=== PATIENT | female | born 1950 | race Caucasian/White ===

== ENCOUNTER 2019-10-11 12:58 | Inpatient (IN) | payer MEDICARE, BC ==
[2019-10-11 14:00] LABS: #Eosinphils 0.1 thou/uL (0.0-0.7); #Lymphocytes 1.7 thou/uL (1.20-3.40); #Monocytes 0.8 thou/uL (0.11-0.59); #Neutrophils 8.1 thou/uL (1.40-6.50); %Basophils 0.2 % (0.0-1.0); %Eosinophils 0.6 % (0.0-10.0); %Monocytes 7.8 % (0.0-10.0); %Neutrophils 75.3 % (42.0-75.0); Hemoglobin 12.5 g/dL (12.0-16.0); Mean Corpuscular HGB CONC 33.2 g/dL (32.0-36.0); Mean Corpuscular Hemoglobin 31.3 pg (27.0-31.0); Mean Corpuscular Volume 94.3 fL (78.0-98.0); Mean Platelet Volume 7.2 fL (7.4-10.4); Platelet Count 346 thou/uL (130-400); RBC Distribution Width 12.7 % (11.5-14.5); Red Blood Cell (RBC) Count 3.99 mill/uL (4.20-5.40); White Blood Cell (WBC) Count 10.8 thou/uL (4.8-10.8)
[2019-10-11 14:10] LABS: Bacteria/HPF None Seen HPF (None Seen); Bilirubin Negative (Negative); Blood, Urine Negative (Negative); Clarity Turbid (Clear); Glucose, Urine (Dipstick) Normal (Negative); Leukocyte 75 Leu/uL (Negative); Nitrite Negative (Negative); Protein, Urine (Dipstick) 20 mg/dL (Neg-Trace); RBC/HPF 0-3 HPF (0-3); Urobilinogen Normal mg/dL (Less than 2)
[2019-10-11] MEDS ORDERED: Promethazine HCl 25 MG/ML VIAL ONE (14:22)
[2019-10-11 14:23] LABS: ALT (SGPT) 12 U/L (8-55); AST (SGOT) 17 U/L (5-34); Albumin 4.2 g/dL (3.4-4.8); Alkaline Phosphatase 108 U/L (40-110); Anion Gap 15 mmol/L (10-20); BUN (Urea Nitrogen) 29 mg/dL (9.8-20.1); Bilirubin, Total 0.6 mg/dL (0.2-1.2); Calc. Creatinine Clearance 0 mL/min (70-130); Calcium 9.4 mg/dL (7.8-10.44); Carbon Dioxide 22 mmol/L (23-31); Chloride 89 mmol/L (98-107); Estimated GFR-MDRD 22; Globulin 2.8 g/dL (2.4-3.5); Glucose 116 mg/dL (80-115); Lipase 18 U/L (8-78); Magnesium 2.1 mg/dL (1.6-2.6); Potassium 4.4 mmol/L (3.5-5.1); Sodium 122 mmol/L (136-145)
--- NOTE | 2019-10-11 15:13 | CT ---
CT Abdomen Pelvis WO Con 10/11/2019 1:37 PM HISTORY: Nausea and weakness. Generalized abdominal pain. Prior appendectomy and cholecystectomy as well as hy sterectomy. COMPARISON: 04/17/2013 Technique: Multiple contiguous axial CT images are obtained through the abdomen and pelvis without IV contrast. Coronal reformats are provided. FINDINGS: This examination is limited for the evaluation of solid organs and vascular structures due to the lac k of intravenous contrast. Lower Chest: Mild increased interstitial densities are seen at the periphery of each lung base which may represent mild chronic lung changes. No consolidation or pleural fluid is seen in either lung base. Vascular calcifications are seen in the coronary arteries. A small hiatal hernia is present. Abdomen: Liver: Grossly normal non-enhanced CT appearance. Gallbladder: Surgically absent. Pancreas: Grossly normal nonenhanced CT appearance. Spleen: Grossly normal nonenhanced CT appearance. Adrenals: Grossly normal nonenhanced CT appearance. Kidneys: No renal calculi are visualized, and there is no evidence of hydronephrosis. Ureters: No ureteral calculus is seen.. Pelvis: Urinary bladder: within normal limits. Reproductive Organs: Evidence of hysterectomy. Lymph Nodes: No enlarged lymph nodes. Bowel: Moderate amount of retained fecal material seen in the rectum. Colonic diverticulosis is prese nt primarily involving the descending and sigmoid colon. Appendix: Not visualized. Patient provides reported history of appendectomy. Peritoneum: No free fluid, free air, or fluid collection. Retroperitoneum: within normal limits. Vessels: Vascular calcifications are present in the abdominal aorta and iliac arteries.. Abdominal Wall: within normal limits. Bones: Degenerative changes are seen in the spine. Slight retrolisthesis of L2 on L3 is present with slight grade 1 anterolisthesis of L4 on L5 which measures approximately 3 mm. Prominent facet hypertrophic changes are present at this level. IMPRESSION: 1. No renal or ureteral calculi are seen bilaterally. 2. Small hiatal hernia. 3. Multilevel degenerative changes in the spine with slight retrolisthesis of L2 on L3 and grade 1 an terolisthesis of L4 on L5. 4. Evidence of cholecystectomy and hysterectomy.
--- NOTE | 2019-10-11 16:15 | PDOC.FPRHP ---
- History of Present Illness Chief Complaint: Nausea/Vomiting History of Present Illness: 69yo F presented to the ED with complaint of N/V. States that she was diagnosed with a UTI a few weeks ago after developing frequency and dysuria. She was started on levoquin but developed N/V. On 10/03 she was seen in the clinic again and culture resulted positive for psuedomonas so patient was transitioned to Ciprofloxacin. She states that since 10/05 she has been experiencing decreased appetite, nausea, and a couple days of vomiting. She notes that she has not been drinking as much fluid during this time as well. She denies any fever, chills, or flank pain during this time but has had continued dysuria. Initial ED workup was significant for hyponatremia and MELANY. She denies any history of either of these problems. She denies any neurologic complaints or her mentioning any changes in her behavior, however, she does feel like it has been hard for her to focus and she feels a little "foggy". ED Course: Received 1L NS and 12.5 promethazine. - Allergies/Adverse Reactions Allergies Allergy/AdvReac Type Severity Reaction Status Date / Time No Known Allergies Allergy Verified 10/11/19 19:23 - Home Medications Comments: Lisinopril 40mg daily, Lipitor 40 daily, HCTZ daily (pt unsure of dose) - History PMHx: Diverticulosis, HTN, HLD PSHx: Cholecystectomy, Hysterectomy, appendectomy, Tonsillectomy, partial thyroidectomy FHx: Both parents - HTN and CHF Social: Denies tobacco, occasional alcohol consumption, no illicit drugs, lives with @ [facility] - Review of Systems General: reports: weight/appetite/sleep changes. denies: fever/chills Eyes: denies: vision changes, other ENT: denies: nasal congestion, rhinorrhea Respiratory: denies: cough, shortness of breath Cardiovascular: denies: chest pain, edema Gastrointestinal: reports: nausea, vomiting, abdominal pain. denies: diarrhea, constipation Genitourinary: reports: dysuria, polyuria. denies: discharge Skin: denies: rashes, lesions Musculoskeletal: denies: pain, tenderness Neurological: denies: numbness, seizure, weakness Psychological: denies: depression, other - Vital signs BP: 148/90, Pulse: 87, Resp: 16, Temp: 98.0 (Oral), Pain: 0, O2 sat: 99 on ( Room Air), Wt: 81kg - Physical Exam Constitutional: NAD, awake, alert and oriented HEENT: EOMI, conjunctiva clear, grossly normal vision -HEENT: Dry MM Neck: FROM Heart: RRR, normal S1/S2 Lungs: CTAB, no respiratory distress, good air movement Abdomen: soft, bowel sounds present -Abdomen: Minimally tender to epigastrium and RUQ Musculoskeletal: normal structure, ROM grossly normal -Musculoskeletal: No CVA tenderness Neurological: no focal deficit, CN II-XII intact -Neurological: Pt slow to respond, having difficulty focusing Skin: no rash/lesions, capillary refill <2 seconds Heme/Lymphatic: no purpura, no petechia Psychiatric: normal mood and affect, intact recent and remote memory FMR H&P: Results - Labs Result Diagrams: 10/12/19 04:35 10/12/19 06:41 Lab results: WBC 10.8 thou/uL (4.8-10.8) 10/11/19 13:51 Hgb 12.5 g/dL (12.0-16.0) 10/11/19 13:51 Hct 37.6 % (36.0-47.0) 10/11/19 13:51 MCV 94.3 fL (78.0-98.0) 10/11/19 13:51 Plt Count 346 thou/uL (130-400) 10/11/19 13:51 Neutrophils % 75.3 % (42.0-75.0) H 10/11/19 13:51 Sodium 122 mmol/L (136-145) L 10/11/19 13:48 Potassium 4.4 mmol/L (3.5-5.1) 10/11/19 13:48 Chloride 89 mmol/L (98-107) L 10/11/19 13:48 Carbon Dioxide 22 mmol/L (23-31) L 10/11/19 13:48 BUN 29 mg/dL (9.8-20.1) H 10/11/19 13:48 Creatinine 2.21 mg/dL (0.6-1.1) H 10/11/19 13:48 Glucose 116 mg/dL (80-115) H 10/11/19 13:48 Lactic Acid 1.2 mmol/L (0.5-2.2) 10/11/19 13:48 Calcium 9.4 mg/dL (7.8-10.44) 10/11/19 13:48 Total Bilirubin 0.6 mg/dL (0.2-1.2) 10/11/19 13:48 AST 17 U/L (5-34) 10/11/19 13:48 ALT 12 U/L (8-55) 10/11/19 13:48 Alkaline Phosphatase 108 U/L (40-110) 10/11/19 13:48 Serum Total Protein 7.0 g/dL (6.0-8.3) 10/11/19 13:48 Albumin 4.2 g/dL (3.4-4.8) 10/11/19 13:48 Lipase 18 U/L (8-78) 10/11/19 13:48 Urine Ketones Negative mg/dL (Negative) 10/11/19 13:49 Urine Blood Negative (Negative) 10/11/19 13:49 Urine Nitrite Negative (Negative) 10/11/19 13:49 Ur Leukocyte Esterase 75 Mariaa/uL (Negative) A 10/11/19 13:49 Urine RBC 0-3 HPF (0-3) 10/11/19 13:49 Urine WBC 7-10 HPF (0-3) A 10/11/19 13:49 Ur Squamous Epith Cells 11-20 HPF (0-3) A 10/11/19 13:49 Urine Bacteria None Seen HPF (None Seen) 10/11/19 13:49 - EKG Interpretation EK lead EKG shows normal sinus rhythm, Rate (beats per minute): 84, with no ectopics, Interpretation: normal EKG, Conduction normal, ST segments normal, T waves normal, [place] normal. - Radiology Interpretation CT scan - abdomen Status: report reviewed by me (1. No renal or ureteral calculi are seen bilaterally. 2. Small hiatal hernia. 3. Multilevel degenerative changes in the spine with slight retrolisthesis of L2 on L3 and grade 1 anterolisthesis of L4 on L5. 4. Evidence of cholecystectomy and hysterectomy.) FMR H&P: A/P - Problem List (1) Hyponatremia with extracellular fluid depletion Current Visit: Yes Status: Acute Code(s): E87.1 - HYPO-OSMOLALITY AND HYPONATREMIA (2) MELANY (acute kidney injury) Current Visit: Yes Status: Acute Code(s): N17.9 - ACUTE KIDNEY FAILURE, UNSPECIFIED (3) Urinary tract infection Current Visit: Yes Status: Acute - Plan Hypovolemic Hyponatremia - Likely due to N/V and decreased appetite 2/2 UTI and medication SE - Na 122 - Received 1L NS in ED - Will repeat BMP tonight and continue replacement as indicated with maintenance fluids - Goal of </= 8 mmol correction in 24 hr period - Tele monitoring Nausea/Vomiting - Likely 2/2 medication side effect vs UTI sx (notes has had that in the past) - Zofran and phenergan available prn - encourage slow PO Acute Kidney Injury - Cr 2.21, baseline near 1 - IVF as sodium correction allows - Encourage PO rehydration as tolerated - FeNa ordered Urinary Tract Infection - UA + leuks and bacter, also contaminated - Urine culture pending, previous culture from 10/03 +psuedomonas - Cefepime 1g daily Chronic Medical Conditions: HTN, HLD - Hold lisinopril and HCTZ due to MELANY and hyponatremia, Resume Lipitor Code: Full Diet: Regular IVF: SL - resume IVF based on Na+ VTE: Lovenox Dispo: Admit to Tele Inpt for sodium monitoring, renal function monitoring, IV abx, and rehydration. [facility]CP: [facility] FMR H&P: Upper Level - Plan Date/Time: 10/11/19 1615 I, Mickey Conde MD, have evaluated this patient and agree with findings/ plan as outlined by internet marketing strategist resident. Pertinent changes/additions are listed here. Hypovolemic Hyponatremia - Secondary to N/V likely from antibiotic use - s/p 1L NS bolus - Recheck BMP in 6 hours - Plan for maintenance fluids for overall goal of repletion less than 10 in 24 hours MELANY - Secondary to dehydration - Cr baseline near 1.0 - IVF and recheck UTI - [place] sensitive pseudomonas on culture from 10/04/2019 - Appropriate antibiotics that patient is able to tolerate to be started All other chronic conditions reviewed and medications to be restarted as appropriate. PCP: [facility] CODE STATUS: FULL CODE Disposition: Stable, will admit to medical service for further evaluation and management. Addendum - Attending - Attending Attestation Date/Time: 10/12/19 0802 I personally evaluated the patient and discussed the management with the team. I agree with the History, Examination, Assessment and Plan documented above with any addition or exceptions noted below. The patient quite coherent with me on 10/10 with no focal signs. I anticipate that she has HCTZ + nausea related to FQ use (she also has disturbed sleep, a possible NC effect of FQ use). She received IVF. Recheck Na for stability then begin hydration as I suspect she is dehydrated. Antibiotics as above.
[2019-10-11] MEDS ORDERED: Ondansetron PF 4 MG/2 ML Vial IVP PRN (19:21)
[2019-10-11] MEDS ORDERED: Promethazine HCl 12.5 MG in Sodium Chloride 0.9% 50 ML IVPB PRN (19:21)
[2019-10-11 19:28] VITALS: BMI 31.5
[2019-10-11 20:00] LABS: Anion Gap 13 mmol/L (10-20); BUN (Urea Nitrogen) 26 mg/dL (9.8-20.1); Calc. Creatinine Clearance 35 mL/min (70-130); Calcium 9.2 mg/dL (7.8-10.44); Carbon Dioxide 23 mmol/L (23-31); Chloride 93 mmol/L (98-107); Estimated GFR-MDRD 26; Glucose 105 mg/dL (80-115); Potassium 4.1 mmol/L (3.5-5.1); Sodium 125 mmol/L (136-145)
[2019-10-11] MEDS: Famotidine/PF 20 mg/2ml Vial SLOW IVP SCH (21:36)
[2019-10-11] MEDS: Cefepime 1 GM in Sodium Chloride 0.9% 100 ML IVPB SCH (21:36)
[2019-10-11 22:59] LABS: BUN (Urea Nitrogen) 27 mg/dL (9.8-20.1); Calc. Creatinine Clearance 37 mL/min (70-130); Calcium 8.5 mg/dL (7.8-10.44); Carbon Dioxide 22 mmol/L (23-31); Chloride 98 mmol/L (98-107); Estimated GFR-MDRD 28; Glucose 118 mg/dL (80-115); Potassium 4.1 mmol/L (3.5-5.1); Sodium 127 mmol/L (136-145)
[2019-10-11] MEDS ORDERED: Polyethylene Glycol 3350 17 GM Packet PO SCH (23:15)
[2019-10-11 23:17] LABS: Anion Gap 11 mmol/L (10-20)
[2019-10-12 04:50] LABS: #Eosinphils 0.1 thou/uL (0.0-0.7); #Lymphocytes 1.8 thou/uL (1.20-3.40); %Basophils 0.5 % (0.0-1.0); %Eosinophils 1.3 % (0.0-10.0); %Lymphocytes 19.8 % (21.0-51.0); %Monocytes 10.8 % (0.0-10.0); %Neutrophils 67.6 % (42.0-75.0); Hemoglobin 11.3 g/dL (12.0-16.0); Mean Corpuscular HGB CONC 33.2 g/dL (32.0-36.0); Mean Corpuscular Hemoglobin 31.8 pg (27.0-31.0); Mean Corpuscular Volume 95.8 fL (78.0-98.0); Mean Platelet Volume 7.2 fL (7.4-10.4); Platelet Count 311 thou/uL (130-400); RBC Distribution Width 12.6 % (11.5-14.5); Red Blood Cell (RBC) Count 3.54 mill/uL (4.20-5.40); White Blood Cell (WBC) Count 8.9 thou/uL (4.8-10.8)
[2019-10-12 05:14] LABS: Anion Gap 13 mmol/L (10-20); BUN (Urea Nitrogen) 28 mg/dL (9.8-20.1); Calc. Creatinine Clearance 38 mL/min (70-130); Calcium 8.7 mg/dL (7.8-10.44); Carbon Dioxide 19 mmol/L (23-31); Chloride 100 mmol/L (98-107); Estimated GFR-MDRD 29; Glucose 102 mg/dL (80-115); Potassium 4.5 mmol/L (3.5-5.1); Sodium 127 mmol/L (136-145)
--- NOTE | 2019-10-12 06:29 | PDOC.FM ---
- Subjective Subjective: Pt states she is feeling much better this morning. Was able to eat a sandwich last night. No further N/V. States she has not drank much fluids though. Feels less "foggy". - Objective Vital Signs & Weight: Vital Signs (12 hours) Temp Pulse Resp BP BP Pulse Ox 10/12/19 03:41 98.6 F 76 20 104/53 L 99 10/11/19 23:30 84 110/58 L 10/11/19 20:00 98 10/11/19 19:26 97.9 F 87 16 120/59 L 98 Weight Weight 80.739 kg Result Diagrams: 10/12/19 04:35 10/12/19 06:41 Phys Exam - Physical Examination Constitutional: NAD HEENT: moist MMs Neck: full ROM Respiratory: clear to auscultation bilateral Cardiovascular: RRR Gastrointestinal: soft, non-tender Musculoskeletal: no edema, pulses present Neurological: moves all 4 limbs Psychiatric: normal affect Skin: cap refill <2 seconds Dx/Plan (1) Hyponatremia with extracellular fluid depletion Code(s): E87.1 - HYPO-OSMOLALITY AND HYPONATREMIA Status: Acute (2) MELANY (acute kidney injury) Code(s): N17.9 - ACUTE KIDNEY FAILURE, UNSPECIFIED Status: Acute (3) Urinary tract infection Status: Acute - Plan Plan: Hypotonic Hyponatremia - Na improved to 128 this morning s/p 1L in ED and oral rehydration - Will repeat BMP this afternoon - Goal of </= 8 mmol correction in 24 hr period - Tele monitoring Nausea/Vomiting - Likely 2/2 medication side effect vs UTI sx (notes has had that in the past) - Zofran and phenergan available prn - encourage slow PO Acute Kidney Injury - Cr improved to 1.74 with rehydration, continue - Encourage PO rehydration as tolerated Urinary Tract Infection - UA + leuks and bacter, also contaminated - Urine culture pending, previous culture from 10/03 +psuedomonas - Cefepime 1g daily Chronic Medical Conditions: HTN, HLD - Hold lisinopril and HCTZ due to MELANY and hyponatremia, Resume Lipitor Code: Full Diet: Regular IVF: LR @ 120 VTE: Lovenox Dispo: Admit to Tele Inpt for sodium monitoring, renal function monitoring, IV abx, and rehydration. PCP: [facility] Addendum - Attending - Attending Attestation Date/Time: 10/12/19 9210 I personally evaluated the patient and discussed the management with Dr. Brewer. I agree with the History, Examination, Assessment and Plan documented above with any addition or exceptions noted below. Sodium and mentation improved today. Continue IV hydration as well as PO intake. This was hyponatremia 2/2 decreased PO intake exacerbated by medication effect. Continue abx for Pseudomonas UTI, now on Zosyn.
[2019-10-12 07:09] LABS: Anion Gap 13 mmol/L (10-20); BUN (Urea Nitrogen) 28 mg/dL (9.8-20.1); Calc. Creatinine Clearance 37 mL/min (70-130); Calcium 8.8 mg/dL (7.8-10.44); Carbon Dioxide 21 mmol/L (23-31); Chloride 99 mmol/L (98-107); Estimated GFR-MDRD 28; Glucose 104 mg/dL (80-115); Potassium 4.9 mmol/L (3.5-5.1); Sodium 128 mmol/L (136-145)
[2019-10-12] MEDS: Cefepime 1 GM in Sodium Chloride 0.9% 100 ML IVPB SCH (08:28)
[2019-10-12] MEDS: Enoxaparin Sodium 30 MG/0.3 ML SYRINGE SC SCH (08:29)
[2019-10-12] MEDS: Polyethylene Glycol 3350 17 GM Packet PO SCH (08:29)
[2019-10-12] MEDS: Lactated Ringer's 1,000 ML IV SCH ×2 (09:10→17:18)
[2019-10-12] MEDS: Piperacillin/Tazobactam 2.25 GM in Sodium Chloride 0.9% 100 ML IVPB SCH ×3 (12:05→23:42)
[2019-10-12 13:52] LABS: Anion Gap 13 mmol/L (10-20); BUN (Urea Nitrogen) 26 mg/dL (9.8-20.1); Calc. Creatinine Clearance 38 mL/min (70-130); Calcium 9.2 mg/dL (7.8-10.44); Carbon Dioxide 23 mmol/L (23-31); Chloride 98 mmol/L (98-107); Estimated GFR-MDRD 29; Glucose 106 mg/dL (80-115); Potassium 4.1 mmol/L (3.5-5.1); Sodium 130 mmol/L (136-145)
[2019-10-12] MEDS: Acetaminophen 325 MG TAB PO PRN (16:38)
[2019-10-12] MEDS ORDERED: Morphine 2 MG/ML SYRINGE SLOW IVP SCH (17:30)
[2019-10-12] MEDS: Fluconazole 100 MG TAB PO SCH (18:22)
[2019-10-12] MEDS: Famotidine/PF 20 mg/2ml Vial SLOW IVP SCH (21:43)
[2019-10-13] MEDS: Lactated Ringer's 1,000 ML IV SCH ×4 (02:55→19:51)
[2019-10-13] MEDS: Piperacillin/Tazobactam 2.25 GM in Sodium Chloride 0.9% 100 ML IVPB SCH ×3 (05:13→17:44)
[2019-10-13 06:22] LABS: Anion Gap 14 mmol/L (10-20); BUN (Urea Nitrogen) 20 mg/dL (9.8-20.1); Calc. Creatinine Clearance 45 mL/min (70-130); Calcium 8.9 mg/dL (7.8-10.44); Carbon Dioxide 19 mmol/L (23-31); Chloride 105 mmol/L (98-107); Estimated GFR-MDRD 35; Glucose 86 mg/dL (80-115); Potassium 4.9 mmol/L (3.5-5.1); Sodium 133 mmol/L (136-145)
[2019-10-13 06:54] LABS: Hemoglobin 10.5 g/dL (12.0-16.0); Mean Corpuscular HGB CONC 33.1 g/dL (32.0-36.0); Mean Corpuscular Hemoglobin 32.1 pg (27.0-31.0); Mean Platelet Volume 7.5 fL (7.4-10.4); Platelet Count 279 thou/uL (130-400); RBC Distribution Width 12.8 % (11.5-14.5); Red Blood Cell (RBC) Count 3.27 mill/uL (4.20-5.40); White Blood Cell (WBC) Count 8.8 thou/uL (4.8-10.8)
--- NOTE | 2019-10-13 07:00 | PDOC.FM ---
- Subjective Subjective: Pt again feel better today. Did have some vaginal irritation last night but his improved with fluconazole. States her appetite is slowly coming back. She got nauseated this morning but this resolved after prn zofran. - Objective Vital Signs & Weight: Vital Signs (12 hours) Temp Pulse Resp BP BP Pulse Ox 10/13/19 03:10 98 F 74 18 106/69 99 10/12/19 23:40 98 F 74 16 97/67 99 10/12/19 20:00 97 10/12/19 19:32 97.9 F 81 16 110/71 97 Weight Admit Weight 80.739 kg Weight 80.739 kg I&O: 10/11/19 10/12/19 10/13/19 06:59 06:59 06:59 Intake Total 1760 Balance 1760 Result Diagrams: 10/13/19 05:27 10/13/19 05:27 Phys Exam - Physical Examination Constitutional: NAD HEENT: moist MMs Respiratory: clear to auscultation bilateral Cardiovascular: RRR Gastrointestinal: soft, non-tender Musculoskeletal: no edema, pulses present Neurological: moves all 4 limbs Psychiatric: normal affect, A&O x 3 Skin: no rash Dx/Plan (1) Hyponatremia with extracellular fluid depletion Code(s): E87.1 - HYPO-OSMOLALITY AND HYPONATREMIA Status: Acute (2) MELANY (acute kidney injury) Code(s): N17.9 - ACUTE KIDNEY FAILURE, UNSPECIFIED Status: Acute (3) Urinary tract infection Status: Acute - Plan Plan: Hypotonic Hyponatremia - Na improved to 133, cont IVF and PO rehydration - Trend daily BMP - Transferred to medical, tele DC'd Nausea/Vomiting - controlled - Likely 2/2 medication side effect vs UTI sx (notes has had that in the past) - Zofran and phenergan available prn Acute Kidney Injury - Cr improved to 1.47 - Encourage PO rehydration as tolerated - Cont IVF @ maintenence until pt full PO Urinary Tract Infection - UA + leuks and bacter, also contaminated - Urine culture pending, previous culture from 10/03 +psuedomonas - Based on ARMANDO sensitivities from previous culture abx changed to Zosyn Chronic Medical Conditions: HTN, HLD - Hold lisinopril and HCTZ due to MELANY and hyponatremia, Resume Lipitor Code: Full Diet: Regular IVF: LR @ 120 VTE: Lovenox Dispo: Admit to Medical Inpt for sodium monitoring, renal function monitoring, IV abx, and rehydration. PCP: [facility] Addendum - Attending - Attending Attestation Date/Time: 10/13/19 0165 I personally evaluated the patient and discussed the management with Dr. Brewer. I agree with the History, Examination, Assessment and Plan documented above with any addition or exceptions noted below. Patient sodium continues to improve, but diet continues to be poor. Needs improved PO intake of solids and liquids. Renal function continues to improve. Continue Zosyn for inadequately treated UTI from outpatient setting.
[2019-10-13 08:06] LABS: Band 6 % (5-11); Eosinophils 2 % (0-10); Lymphocytes 19 % (21-51); MDiff Complete? YES; Monocytes 7 % (0-10); Neutrophil 66 % (42-75); Platelet Morphology Comment Appears Adequate; Polychromasia SLIGHT = 2-3 cells (100X) (0-2/hpf)
[2019-10-13] MEDS: Polyethylene Glycol 3350 17 GM Packet PO SCH (08:56)
[2019-10-13] MEDS: Enoxaparin Sodium 30 MG/0.3 ML SYRINGE SC SCH (08:56)
[2019-10-13] MEDS: Fluconazole 100 MG TAB PO SCH (17:44)
[2019-10-13] MEDS ORDERED: Fosfomycin 3 GM/Packet PO SCH (19:00)
[2019-10-13] MEDS: Acetaminophen 325 MG TAB PO PRN (19:42)
[2019-10-13] MEDS: Famotidine/PF 20 mg/2ml Vial SLOW IVP SCH (19:51)
[2019-10-14] MEDS: Piperacillin/Tazobactam 2.25 GM in Sodium Chloride 0.9% 100 ML IVPB SCH ×2 (00:12→05:28)
[2019-10-14 06:48] LABS: Anion Gap 11 mmol/L (10-20); BUN (Urea Nitrogen) 13 mg/dL (9.8-20.1); Calc. Creatinine Clearance 53 mL/min (70-130); Carbon Dioxide 23 mmol/L (23-31); Chloride 106 mmol/L (98-107); Estimated GFR-MDRD 42; Glucose 88 mg/dL (80-115); Potassium 4.1 mmol/L (3.5-5.1); Sodium 136 mmol/L (136-145)
--- NOTE | 2019-10-14 07:01 | PDOC.FM ---
- Subjective Subjective: Pt continues to feel better this morning. Tolerating PO adequately. Denies any further dysuria or abdominal pain. - Objective Vital Signs & Weight: Vital Signs (12 hours) Temp Pulse Resp BP BP Pulse Ox 10/14/19 03:36 97.3 F L 86 18 93/59 L 96 10/13/19 19:50 96 10/13/19 19:21 98.5 F 86 18 103/70 96 Weight Admit Weight 80.739 kg Weight 80.739 kg I&O: 10/12/19 10/13/19 10/14/19 06:59 06:59 06:59 Intake Total 1760 2900 Balance 1760 2900 Result Diagrams: 10/13/19 05:27 10/14/19 06:08 Phys Exam - Physical Examination Constitutional: NAD HEENT: moist MMs Neck: full ROM No respiratory distress No edema Neurological: moves all 4 limbs Psychiatric: normal affect, A&O x 3 Skin: no rash Dx/Plan (1) Hyponatremia with extracellular fluid depletion Code(s): E87.1 - HYPO-OSMOLALITY AND HYPONATREMIA Status: Acute (2) MELANY (acute kidney injury) Code(s): N17.9 - ACUTE KIDNEY FAILURE, UNSPECIFIED Status: Acute (3) Urinary tract infection Status: Acute - Plan Plan: Hypotonic Hyponatremia - Na improved to 135, will DC IVF Nausea/Vomiting - controlled - Likely 2/2 medication side effect vs UTI sx (notes has had that in the past) - Zofran and phenergan available prn Acute Kidney Injury - Cr improved to 1.25 Urinary Tract Infection - urine culture from this admission with no growth at 24hrs - received fosfomycin last night - zosyn to be dc'd after 48 hours which will be later this morning Chronic Medical Conditions: HTN, HLD - Hold lisinopril and HCTZ due to MELANY and hyponatremia, Resume Lipitor Code: Full Diet: Regular IVF: LR @ 120 VTE: Lovenox Dispo: Medical inpatient. Plan for DC today after 48hr of IV Zosyn. PCP: [facility] Addendum - Attending - Attending Attestation Date/Time: 10/14/19 1031 I personally evaluated the patient and discussed the management with Dr. Brewer. I agree with the History, Examination, Assessment and Plan documented above with any addition or exceptions noted below. Patient stable for discharge. Holding BP meds and to follow up with outpatient PCP.
[2019-10-14 07:38] VITALS: BP 114/73
[2019-10-14] MEDS: Polyethylene Glycol 3350 17 GM Packet PO SCH (08:36)
[2019-10-14] MEDS: Enoxaparin Sodium 30 MG/0.3 ML SYRINGE SC SCH (08:37)
[2019-10-14] MEDS: Lactated Ringer's 1,000 ML IV SCH (08:37)
[2019-10-14 12:19] VITALS: TEMP 98
--- NOTE | 2019-10-15 02:47 | DIS ---
DATE OF ADMISSION: 10/11/2019 DATE OF DISCHARGE: 10/14/2019 ADMITTING ATTENDING: Orlando Saunders MD DISCHARGE ATTENDING: Orlando Saunders MD. RESIDENT: Cornell Brewer DO. CONSULTS: None. PROCEDURES: None. IMAGING: Abdomen and pelvis CT without contrast on 10/11/2019. Findings; no renal or ureteral calculi. Small hiatal hernia. Multilevel degenerative changes in the spine with slight retrolisthesis at L2 and L3 and grade 1 anterolisthesis of L4 and L5. Evidence of cholecystectomy and hysterectomy. PRIMARY DIAGNOSES: Symptomatic hyponatremia, hypovolemia, acute kidney injury, urinary tract infection. SECONDARY DIAGNOSES: Hypertension, hyperlipidemia, nausea, and vomiting. DISCHARGE MEDICATIONS: 1. Aspirin 81 mg daily. 2. Atorvastatin 40 mg daily. 3. Fosfomycin 3 g p.o. x1. Discontinued medications: Lisinopril 40 mg daily, hydrochlorothiazide 25 mg daily. HOSPITAL COURSE: A 69-year-old female presenting to the emergency department with complaints of nausea and vomiting. The patient stated that three weeks ago she was diagnosed with a urinary tract infection and started on Levaquin. She developed some nausea and did not tolerate the antibiotics, so later went to a new provider and had her medication changed to ciprofloxacin. Since that change, the patient had developed nausea and vomiting with worsening dysuria and frequency. Initial review in the emergency department found the patient to be hyponatremic at 122 and with an acute kidney injury with a creatinine of 2.21. The patient was subsequently admitted to the hospital for repletion of her sodium and fluid hydration for renal resuscitation. Review of the patient's outpatient urinary culture showed it to be pansensitive Pseudomonas; however, further review showed that the ARMANDO values were most susceptible to Zosyn. The patient was admitted on cefepime, but had her medications changed to Zosyn q.6 for 48 hours once culture results were reviewed. Her lisinopril and hydrochlorothiazide were stopped due to acute kidney injury and hyponatremia. Her blood pressure remained within normal limits throughout her admission, so these were discontinued upon discharge from the hospital. After p.o. and IV fluid rehydration, the patient's sodium normalized and her creatinine improved to near normal range. The patient was instructed to follow up with her primary care doctor regarding her medication changes. DISCHARGE INSTRUCTIONS: Location: Home. Diet: Heart healthy. Activity: As tolerated. Followup: PCP within 7 days. Job ID: [id number]
== END 2019-10-14 12:02 | disposition home or self-care (01) | DRG 683 ==
LOC: ERS 12:58 → 2NO 19:16 → T4-B 10-12 14:33
PROVIDERS: ADMIT Student in an Organized Health Care Education/Training Program; ATTEND Student in an Organized Health Care Education/Training Program
DX: N17.9 Acute kidney failure, unspecified (principal); E87.1 Hypo-osmolality and hyponatremia; N39.0 Urinary tract infection, site not specified; E86.1 Hypovolemia; E78.5 Hyperlipidemia, unspecified; I10 Essential (primary) hypertension; R11.2 Nausea with vomiting, unspecified; E86.0 Dehydration; E78.00 Pure hypercholesterolemia, unspecified; B96.5 Pseudomonas (aeruginosa) (mallei) (pseudomallei) as the cause of diseases classified elsewhere; K44.9 Diaphragmatic hernia without obstruction or gangrene; E86.9 Volume depletion, unspecified; Z90.49 Acquired absence of other specified parts of digestive tract; Z90.710 Acquired absence of both cervix and uterus; Z98.1 Arthrodesis status
CPT/HCPCS: 36415; 74176; 80048; 80053; 81003; 81015; 83605; 83690; 83735; 83930; 83935; 84300; 84484; 85025; 87086; 93005; 96361; 96365; J0692; J1650; J2270; J2405; J2543; J2550; J3490; S0028